=== PATIENT | male | born 1970 | race African-American/Black ===

== ENCOUNTER 2018-08-11 22:21 | Emergency (ER) | payer SELFPAY ==
[~2018-08-11] VITALS: Ht 175.3 cm; Wt 85.7 kg
[2018-08-11 23:24] LABS: Urine Bacteria FEW /hpf (None Seen); Urine Blood Negative /uL (Negative); Urine Mucus FEW (None Seen); Urine Specific Gravity 1.021 (1.001-1.035); Urine WBC 9 /hpf (0 - 3)
[2018-08-11 23:55] LABS: Basophils # (auto) 0.1 uL; Basophils % (auto) 0.6 % (0.0-2.0); Eosinophils # (auto) 0.1 uL; Eosinophils % (auto) 1.3 % (0.0-7.0); Hemoglobin 15.9 g/dL (13.5-17.5); Mean Corpuscular Hemoglobin 26.9 pg (28.0-32.0); Monocytes # (auto) 0.7 uL; White Blood Cell 9.7 10^3/uL (4.4-10.8)
[2018-08-11 23:56] LABS: Hematocrit 48.8 % (41.0-53.0); Lymphocytes # (auto) 2.6 uL; Lymphocytes % (auto) 26.8 % (10.0-50.0); Mean Corpuscular Hgb Conc. 32.5 g/dL (32.0-36.0); Mean Corpuscular Volume 82.8 fL (80.0-100.0); Monocytes % (auto) 7.2 % (0.0-12.0); Neutrophils # (auto) 6.2 uL; Neutrophils % (auto) 64.1 % (37.0-80.0); Nucleated Red Blood Cells % 0.2 %; Platelet Count (auto) 243 10^3/uL (140-450); Red Cell Distribution Width 15.3 % (11.8-14.3)
[2018-08-12 00:10] LABS: Albumin 3.7 g/dL (3.4-5.0); BUN/Creatinine Ratio 11.5; Calcium 8.9 mg/dL (8.5-10.1); Potassium 4.3 mmol/L (3.5-5.1)
[2018-08-12 00:19] LABS: Bilirubin, Total 0.5 mg/dL (0.2-1.0); Total Protein 7.9 g/dL (6.4-8.2)
[2018-08-12 00:22] LABS: Uric Acid 4.2 mg/dL (3.5-7.2)
[2018-08-12] MEDS ORDERED: traMADol HCL 50 MG TAB PO ONE (05:45)
[2018-08-12 08:25] VITALS: BP 131/88
[2018-08-12] MEDS ORDERED: predniSONE 20 MG TAB PO ONE (09:00)
== END 2018-08-12 08:56 | disposition home or self-care (01) ==
LOC: ER 22:33
DX: M10.072 Idiopathic gout, left ankle and foot (principal); N39.0 Urinary tract infection, site not specified; Z88.6 Allergy status to analgesic agent
CPT/HCPCS: 36415; 80053; 81001; 84550; 85025; 99284; J7512

== ENCOUNTER 2020-07-12 00:42 | Emergency (ER) | payer MEDICAID, OTHER ==
[~2020-07-12] VITALS: Ht 180.3 cm; Wt 104.3 kg
[2020-07-12 01:42] LABS: Basophils # (auto) 0 10 ^3/uL (0-0.2); Basophils % (auto) 0.3 % (0.0-2.0); Eosinophils # (auto) 0.2 10 ^3/uL (0-0.8); Eosinophils % (auto) 1.7 % (0.0-7.0); Hematocrit 47.9 % (41.0-53.0); Hemoglobin 15.9 g/dL (13.5-17.5); Lymphocytes # (auto) 3.2 10 ^3/uL (0.4-5.4); Lymphocytes % (auto) 34.4 % (10.0-50.0); Mean Corpuscular Hemoglobin 27.6 pg (28.0-32.0); Mean Corpuscular Hgb Conc. 33.2 g/dL (32.0-36.0); Mean Corpuscular Volume 83.3 fL (80.0-100.0); Monocytes # (auto) 0.5 10 ^3/uL (0-1.3); Monocytes % (auto) 5.5 % (0.0-12.0); Neutrophils # (auto) 5.4 10 ^3/uL (1.6-8.6); Neutrophils % (auto) 58.1 % (37.0-80.0); Nucleated Red Blood Cells % 0.1 %; Platelet Count (auto) 219 10^3/uL (140-450); Red Blood Cells 5.75 10^6/uL (4.5-5.90); Red Cell Distribution Width 15.7 % (11.8-14.3); White Blood Cell 9.4 10^3/uL (4.4-10.8)
[2020-07-12 02:00] LABS: Albumin 3.7 g/dL (3.4-5.0); Anion Gap 7 (5-15); Blood Urea Nitrogen 11 mg/dL (7-18); Calcium 8.3 mg/dL (8.5-10.1); Carbon Dioxide 26 mmol/L (21-32); Chloride 106 mmol/L (98-107); Glucose 140 mg/dL (74-106); Magnesium 2.1 mg/dL (1.6-2.6); Potassium 3.4 mmol/L (3.5-5.1); Sodium 139 mmol/L (136-145)
[2020-07-12 02:02] LABS: Alanine Aminotransferase 48 U/L (16-61); Aspartate Aminotransferase 24 U/L (15-37); BUN/Creatinine Ratio 9.6; GFR African American 86 mL/min; GFR Non-African American 71 mL/min
[2020-07-12 02:07] LABS: Alkaline Phosphatase 92 U/L (45-117); Bilirubin, Total 0.7 mg/dL (0.2-1.0); Total Protein 7.9 g/dL (6.4-8.2)
[2020-07-12 02:12] LABS: Partial Thromboplastin Time 21.4 sec (23.0-31.2)
[2020-07-12] MEDS ORDERED: SUCCINYLCHOLINE CHLORIDE 20 MG/ML 10ML VIAL IV ONE ×3 (02:18→03:15)
[2020-07-12] MEDS ORDERED: ETOMIDATE (2MG/ML) 20ML VIAL IV ONE ×3 (02:18→03:15)
[2020-07-12] MEDS ORDERED: PROPOFOL 0 ML IV ONE (02:20)
[2020-07-12] MEDS ORDERED: PROPOFOL 100 ML IV ONE (02:24)
[2020-07-12] MEDS ORDERED: PROPOFOL 100 ML IV SCH (03:07)
[2020-07-12] MEDS ORDERED: MIDAZOLAM DRIP 50 mg/50mL 50 ML IV SCH (03:07)
[2020-07-12] MEDS ORDERED: MIDAZOLAM DRIP 50 mg/50mL 50 ML IV ONE (03:10)
[2020-07-12] MEDS ORDERED: MIDAZOLAM HCL 1MG/1ML-2 ML VIAL ONE (03:10)
[2020-07-12] MEDS ORDERED: MIDAZOLAM HCL 1MG/1ML-2 ML VIAL IV ONE (03:15)
[2020-07-12 04:12] VITALS: BP 147/109
[2020-07-12] MEDS ORDERED: cefTRIAXone 1GM/50ML D5W 50 ML IV ONE (04:15)
== END 2020-07-12 04:18 | disposition short-term general hospital (02) ==
LOC: EDSEX 00:42 → EDBD 00:42 → ER 00:42
DX: I60.9 Nontraumatic subarachnoid hemorrhage, unspecified (principal); F10.129 Alcohol abuse with intoxication, unspecified; M10.9 Gout, unspecified; Y90.9 Presence of alcohol in blood, level not specified
CPT/HCPCS: 31500; 36415; 36600; 70450; 71045; 72125; 80053; 80320; 82805; 83735; 83880; 84443; 84484; 85025; 85379; 85610; 85730; 87070; 87205; 93005; 99291; J0330; J0696; J2250; J2704; 94002